=== PATIENT | female | born 1995 | race Caucasian/White ===

== ENCOUNTER 2017-10-22 17:37 | Emergency (ER) | END 2017-10-22 19:14 | disposition home or self-care (01) ==

== ENCOUNTER → 2018-06-04 | Outpatient (CLI) | payer BC ==
[~2018-06-04] MED LIST: BCP; Robaxin500 MG PO; Zofran Odt8 MG SL
== END ==
LOC: LAB SHORT 12:03 → LAB 12:03
PROVIDERS: Registered Nurse Community Health
DX: Z12.4 Encounter for screening for malignant neoplasm of cervix (principal)
CPT/HCPCS: G0123

== ENCOUNTER 2019-02-12 21:15 | Observation (INO) | payer BC ==
[~2019-02-12] VITALS: Ht 162.6 cm; Wt 104.3 kg
[2019-02-13] MEDS ORDERED: Percocet 7.5-31 EACH PO (00:27)
[2019-02-13] MEDS ORDERED: IBUP800 PO (00:27)
[2019-02-13 01:50] LABS: BASOPHILS ABSOLUTE AUTO 0.03 K/mm3 (0.00-0.23); BASOPHILS PERCENT AUTO 0 % (0-2); EOSINOPHILS ABSOLUTE AUTO 0.01 K/mm3 (0.00-0.68); EOSINOPHILS PERCENT AUTO 0 % (0-6); Hematocrit 36.2 % (33.0-51.0); IMMATURE GRAN ABSOLUTE AUTO 0.06 K/mm3 (0.00-0.10); IMMATURE GRAN PERCENT AUTO 1 % (0-1); LYMPHOCYTES ABSOLUTE AUTO 0.85 K/mm3 (0.84-5.20); LYMPHOCYTES PERCENT AUTO 7 % (21-46); MONOCYTES ABSOLUTE AUTO 0.79 K/mm3 (0.16-1.47); MONOCYTES PERCENT AUTO 6 % (4-13); Mean Corpuscular HGB 29.6 pg (26.0-34.0); Mean Corpuscular HGB Conc 33.1 g/dL (31.5-36.5); Mean Corpuscular Volume 89 fL (80-100); Mean Platelet Volume 9.7 fL (9.1-12.4); NEUTROPHILS ABSOLUTE AUTO 11.22 K/mm3 (1.96-9.15); NEUTROPHILS PERCENT AUTO 87 % (41-73); Platelet Count 282 K/mm3 (150-400); RDW Coefficient Variation 11.8 % (11.7-14.2); RDW Standard Deviation 38.2 fL (35.1-46.3); Red Blood Cell Count 4.06 M/mm3 (3.80-5.20); White Blood Cell Count 12.96 K/mm3 (4.00-11.30)
[2019-02-13 02:09] LABS: Alanine Aminotransfer (ALT/SGP 327 U/L (12-78); Albumin, Blood 3.6 g/dL (3.4-5.0); Albumin/Globulin Ratio 1.1 (0.8-1.8); Alk Phos 93 U/L (50-136); Anion Gap 6 mmol/L (6-16); Aspartate Aminotrans (AST/SGOT 316 U/L (12-37); Bilirubin, Total 0.3 mg/dL (0.1-1.0); Blood Urea Nitrogen 11 mg/dL (8-24); Bun/Creatinine Ratio 16.6 (12.0-20.0); CO2, Blood 25 mmol/L (21-32); Calcium, Blood 8.3 mg/dL (8.5-10.1); Chloride, Blood 107 mmol/L (98-108); Creatinine, Blood 0.66 mg/dL (0.40-1.00); Globulin, Blood 3.2 g/dL (2.2-4.0); Glomerular Filtration Rate >60 (60-); Glucose, Blood 122 mg/dL (70-99); Potassium, Blood 3.8 mmol/L (3.5-5.5); Sodium, Blood 138 mmol/L (136-145); Total Protein, Blood 6.8 g/dL (6.4-8.2)
[2019-02-13 02:20] LABS: Calcium, Ionized (POC) 1.17 mmol/L (1.10-1.46); Chloride (POC) 102 mmol/L (98-108); Creatinine (POC) 0.7 mg/dL (0.6-1.0); Glucose (ISTAT POC) 118 mg/dL (70-99); Hemoglobin (POC) 12.2 g/dL (12.0-16.0); Potassium (POC) 4.3 mmol/L (3.5-5.5); Sodium (POC) 138 mmol/L (135-148); Total CO2 (POC) 24 mmol/L (21-32)
--- NOTE | 2019-02-13 13:36 | NUR ---
DR LI HERE TO SEE PT.
[2019-02-13 14:07] LABS: BASOPHILS ABSOLUTE AUTO 0.03 K/mm3 (0.00-0.23); BASOPHILS PERCENT AUTO 0 % (0-2); EOSINOPHILS ABSOLUTE AUTO 0.03 K/mm3 (0.00-0.68); EOSINOPHILS PERCENT AUTO 0 % (0-6); Hematocrit 37.5 % (33.0-51.0); Hemoglobin 12.3 g/dL (11.5-16.0); IMMATURE GRAN ABSOLUTE AUTO 0.02 K/mm3 (0.00-0.10); IMMATURE GRAN PERCENT AUTO 0 % (0-1); LYMPHOCYTES ABSOLUTE AUTO 1.35 K/mm3 (0.84-5.20); LYMPHOCYTES PERCENT AUTO 13 % (21-46); MONOCYTES ABSOLUTE AUTO 1.24 K/mm3 (0.16-1.47); MONOCYTES PERCENT AUTO 12 % (4-13); Mean Corpuscular HGB 29.5 pg (26.0-34.0); Mean Corpuscular HGB Conc 32.8 g/dL (31.5-36.5); Mean Corpuscular Volume 90 fL (80-100); Mean Platelet Volume 9.9 fL (9.1-12.4); NEUTROPHILS ABSOLUTE AUTO 7.41 K/mm3 (1.96-9.15); NEUTROPHILS PERCENT AUTO 74 % (41-73); Platelet Count 286 K/mm3 (150-400); RDW Coefficient Variation 11.9 % (11.7-14.2); RDW Standard Deviation 38.8 fL (35.1-46.3); Red Blood Cell Count 4.17 M/mm3 (3.80-5.20); White Blood Cell Count 10.08 K/mm3 (4.00-11.30)
--- NOTE | 2019-02-13 16:36 | NUR ---
SHIFT SUMMARY PT NEW ADMIT TODAY. PT FAMILY PRESENT. PT BEEN ASSISTED WITH ADL'S PRN. PT HAS EATEN AND DRINKING WELL. PT DID HAVE PAIN MED AND WAS ABLE TO HAVE A NAP.
--- NOTE | 2019-02-13 16:37 | NUR ---
OTHER MARIA ALEJANDRA Saul GIVEN REPORT AND IS ASSUMING CARE OF PT AT THIS TIME.
--- NOTE | 2019-02-13 18:08 | NUR ---
2 TAB PO OXY GIVEN WITH ICE CREAM PT STATED IT HURTS TO REACH FOR HER CUP AND AND WHEN SHE MOVES PAIN IS 10/10 LAYING IN BED 5/10
[2019-02-14] MEDS ORDERED: ONDA4ODT PO (10:58)
[2019-02-14] MEDS ORDERED: OXYC5 PO (11:00)
--- NOTE | 2019-02-14 12:09 | NUR ---
DISCHARGE PT DISCHARGE TO HOME VIA WHEELCHAIR. DISCHARGE INSTRUCTIONS GONE OVER WITH PATIENT. PERSCRIPTIONS SENT WITH PATIENT.
--- NOTE | 2019-02-14 12:21 | NUR ---
NAUSEA PT BECAME NAUSEATED AND VOMITED PRIOR TO DISCHARGE. PT REPORTS PAIN MEDICATION MAKES HER NAUSEATED. SHE WAS ENCOURAGED TO EAT MILD FOODS AND STAY HYDRATED. PT REPORTS PASSING FLATUS, BOWEL SOUNDS PRESENT.
--- NOTE | 2019-02-14 12:34 | NUR ---
DISCHARGE SIGNATURE PAGE SENT HOME WITH PATIENT IN DISCHARGE PACKET. INFORMATION GONE OVER WITH PATIENT.
== END 2019-02-14 12:00 | disposition home or self-care (01) ==
LOC: ER 21:15 → ERHOLD 21:16 → ER 02-13 04:50 → ERHOLD 02-13 04:50 → SURS 02-13 04:50 → ERHOLD 02-13 12:22 → SURS 02-13 12:22 → ER 02-13 21:16 → ERHOLD 02-13 21:16 → SURS 02-13 21:16 → ER 02-14 12:00 → ERHOLD 02-14 12:00
PROVIDERS: Emergency Medicine; Surgery; ADMIT Surgery
DX: S36.115A Moderate laceration of liver, initial encounter (principal); S22.43XA Multiple fractures of ribs, bilateral, initial encounter for closed fracture; V86.59XA Driver of other special all-terrain or other off-road motor vehicle injured in nontraffic accident, initial encounter; R40.2413 Glasgow coma scale score 13-15, at hospital admission
CPT/HCPCS: 36415; 70450; 71046; 71260; 72040; 72125; 74177; 76705; 80047; 80053; 83690; 85014; 85025; 86850; 86900; 86901; 96374-59; 96375; 96375-59; 99285-25; J0780; J1170; J2405; Q9967

== ENCOUNTER → 2019-11-26 | Outpatient (CLI) | payer BC ==
[~2019-11-26] MED LIST changes: +IBUP800 PO; +ONDA4ODT PO; +OXYC5 PO; +Percocet 7.5-31 EACH PO
== END ==
LOC: LAB UCHC 15:27 → LAB SHORT 15:27
DX: N91.2 Amenorrhea, unspecified (principal)
CPT/HCPCS: 36415; 84702

== ENCOUNTER → 2020-03-17 | Outpatient (CLI) | payer BC ==
[2020-03-19 11:09] LABS: CHLAMYDIA TRACHOMATIS, NAA Negative (Negative); NEISSERIA GONORRHOEAE, NAA Negative (Negative)
== END ==
LOC: LAB SHORT 12:09 → LAB UCHC 12:09
PROVIDERS: Registered Nurse Community Health
DX: Z34.01 Encounter for supervision of normal first pregnancy, first trimester (principal)
CPT/HCPCS: 87491; 87591

== ENCOUNTER → 2020-07-05 | Outpatient (CLI) | payer BC ==
[~2020-07-05] MED LIST changes: +DOCU100 PO; +PRENATAL TABLE1 EAC2 PO; +Percocet 5-3251 EACH PO
[2020-07-05 12:43] LABS: Hematocrit 36.7 % (33.0-51.0); Hemoglobin 12.1 g/dL (11.5-16.0)
== END ==
LOC: PLD 11:39 → LAB SHORT 11:39
PROVIDERS: Registered Nurse Community Health
DX: Z34.90 Encounter for supervision of normal pregnancy, unspecified, unspecified trimester (principal)
CPT/HCPCS: 82950; 85014; 85018

== ENCOUNTER 2020-09-28 20:33 | Inpatient (IN) | payer BC ==
[~2020-09-28] VITALS: Ht 162.6 cm; Wt 122.7 kg
[~2020-09-28 20:33] MED LIST changes: -DOCU100 PO; -PRENATAL TABLE1 EAC2 PO; -Percocet 5-3251 EACH PO
[2020-09-28 21:43] LABS: BASOPHILS ABSOLUTE AUTO 0.03 K/mm3 (0.00-0.23); BASOPHILS PERCENT AUTO 0 % (0-2); EOSINOPHILS ABSOLUTE AUTO 0.11 K/mm3 (0.00-0.68); EOSINOPHILS PERCENT AUTO 1 % (0-6); Hematocrit 34.8 % (33.0-51.0); IMMATURE GRAN ABSOLUTE AUTO 0.03 K/mm3 (0.00-0.10); IMMATURE GRAN PERCENT AUTO 0 % (0-1); LYMPHOCYTES ABSOLUTE AUTO 2.43 K/mm3 (0.84-5.20); LYMPHOCYTES PERCENT AUTO 22 % (21-46); MONOCYTES ABSOLUTE AUTO 0.95 K/mm3 (0.16-1.47); MONOCYTES PERCENT AUTO 9 % (4-13); Mean Corpuscular HGB 28.3 pg (26.0-34.0); Mean Corpuscular HGB Conc 34.5 g/dL (31.5-36.5); Mean Corpuscular Volume 82 fL (80-100); Mean Platelet Volume 10.5 fL (9.1-12.4); NEUTROPHILS ABSOLUTE AUTO 7.41 K/mm3 (1.96-9.15); NEUTROPHILS PERCENT AUTO 68 % (41-73); Platelet Count 262 K/mm3 (150-400); RDW Coefficient Variation 12.4 % (11.7-14.2); RDW Standard Deviation 36.5 fL (35.1-46.3); Red Blood Cell Count 4.24 M/mm3 (3.80-5.20); White Blood Cell Count 10.96 K/mm3 (4.00-11.30)
[2020-09-29 16:56] LABS: PCO2 Cord - Arterial 63.8 mmHg (40-50); pH Cord - Arterial 7.16 (7.28-7.35)
[2020-09-29 16:58] LABS: PCO2 Cord - Venous 51.7 mmHg (40-50); PO2 Cord - Venous 15.9 mmHg (28-32); pH Umbilical Cord - Venous 7.22 (7.26-7.35)
[2020-09-29 16:59] LABS: PO2 Cord - Arterial < 13 mmHg (16-20)
--- NOTE | 2020-09-29 18:16 | NUR ---
09/29/20 1816 Emily Espinoza 1638 DELIVERY OF VIABLE FEMALE , WEIGHT 3286, 7# 4 OZ, HEAD 14 INCHES, CHEST 14 INCHES, LENGTH 20 INCHES, APGARS 8/8, NB TAKEN TO [facility] FOR RESPIRATORY EVALUATION BY NUTRITION PROGRAM INSTRUCTOR, UMBILICAL CORD SEGMENT SENT WITH RT FOR CORD GASES, UMBILCAL CORD BLOOD COLLECTED FOR TYPE AND RH GIVEN TO RN
--- NOTE | 2020-09-29 19:00 | NUR ---
ASSUMED CARE OF PATIENT, REPORT RECEIVED FROM MARIA ALEJANDRA MARIN. PT IS STARTING TO GET MORE PAINFUL. WILL TRY PO AND GIVE PAIN MEDICATION. BABY IS A BREAST, WITH GOOD LATCH,
--- NOTE | 2020-09-29 21:00 | NUR ---
PT CONTINUES TO BE PAINFUL AFTER PERCOCET. BINDER APPLIED. WILL SEE IF THIS HELPS, OTHERWISE WILL CALL FOR BREAKTHROUGH PAIN MEDICATION.
--- NOTE | 2020-09-29 22:30 | NUR ---
REPORT TO MARIA ALEJANDRA RICKS
[2020-09-30 05:40] LABS: BASOPHILS ABSOLUTE AUTO 0.03 K/mm3 (0.00-0.23); BASOPHILS PERCENT AUTO 0 % (0-2); EOSINOPHILS ABSOLUTE AUTO 0.03 K/mm3 (0.00-0.68); EOSINOPHILS PERCENT AUTO 0 % (0-6); Hematocrit 28.3 % (33.0-51.0); Hemoglobin 9.7 g/dL (11.5-16.0); IMMATURE GRAN ABSOLUTE AUTO 0.04 K/mm3 (0.00-0.10); IMMATURE GRAN PERCENT AUTO 0 % (0-1); LYMPHOCYTES ABSOLUTE AUTO 1.85 K/mm3 (0.84-5.20); LYMPHOCYTES PERCENT AUTO 16 % (21-46); MONOCYTES ABSOLUTE AUTO 1.08 K/mm3 (0.16-1.47); MONOCYTES PERCENT AUTO 9 % (4-13); Mean Corpuscular HGB 28.2 pg (26.0-34.0); Mean Corpuscular HGB Conc 34.3 g/dL (31.5-36.5); Mean Corpuscular Volume 82 fL (80-100); Mean Platelet Volume 10.3 fL (9.1-12.4); NEUTROPHILS ABSOLUTE AUTO 8.94 K/mm3 (1.96-9.15); NEUTROPHILS PERCENT AUTO 75 % (41-73); Platelet Count 216 K/mm3 (150-400); RDW Coefficient Variation 12.5 % (11.7-14.2); RDW Standard Deviation 36.9 fL (35.1-46.3); Red Blood Cell Count 3.44 M/mm3 (3.80-5.20); White Blood Cell Count 11.97 K/mm3 (4.00-11.30)
[2020-10-01] MEDS ORDERED: DOCU100 PO (13:44)
[2020-10-01] MEDS ORDERED: IBUP800 PO (13:45)
[2020-10-01] MEDS ORDERED: Percocet 5-3251 EACH PO (13:45)
[2020-10-01] MEDS ORDERED: PRENATAL TABLE1 EAC2 PO (13:46)
--- NOTE | 2020-10-11 18:51 | NUR ---
LATE ENTRY OR CHECKLIST UPDATED PER EMR
== END 2020-10-01 14:37 | disposition home or self-care (01) | DRG 787 ==
LOC: OBS 20:33 → BC 20:35 → OBS 20:46 → BC 20:47
PROVIDERS: Family Medicine; ADMIT Registered Nurse Community Health
PROC: 10H07YZ Insertion of Other Device into Products of Conception, Via Natural or Artificial Opening (ICD-10-PCS; 2020-09-28)
PROC: 3E0234Z Introduction of Serum, Toxoid and Vaccine into Muscle, Percutaneous Approach (ICD-10-PCS; 2020-09-29)
PROC: 10D00Z1 Extraction of Products of Conception, Low, Open Approach (ICD-10-PCS; principal; 2020-09-29 17:00)
DX: O99.824 Streptococcus B carrier state complicating childbirth (principal); D62 Acute posthemorrhagic anemia; O76 Abnormality in fetal heart rate and rhythm complicating labor and delivery; Z88.5 Allergy status to narcotic agent; Z3A.39 39 weeks gestation of pregnancy; Z37.0 Single live birth; O26.893 Other specified pregnancy related conditions, third trimester; Z67.21 Type B blood, Rh negative; Z20.822 Contact with and (suspected) exposure to COVID-19; O99.02 Anemia complicating childbirth
CPT/HCPCS: 36415; 82803; 85025; 85460; 86850; 86900; 86901; 96372; A9270; J0290; J0690; J1885; J2210; J2370; J2405; J2590; J2765; J2791; J7120; U0004

== ENCOUNTER → 2022-05-16 | Outpatient (CLI) | payer OTHER ==
[~2022-05-16] MED LIST changes: +DOCU100 PO; +PRENATAL TABLE1 EAC2 PO; +Percocet 5-3251 EACH PO
[2022-05-18 03:10] LABS: CHLAMYDIA TRACHOMATIS, NAA Negative (Negative)
== END ==
LOC: LAB 15:50 → LAB SHORT 15:50
PROVIDERS: Registered Nurse Community Health
DX: Z34.00 Encounter for supervision of normal first pregnancy, unspecified trimester (principal); Z3A.00 Weeks of gestation of pregnancy not specified
CPT/HCPCS: 83036; 87491; 87591

== ENCOUNTER → 2022-07-19 | Outpatient (CLI) | payer OTHER ==
[2022-07-19 12:13] LABS: Hematocrit 36.1 % (33.0-51.0); Hemoglobin 12.1 g/dL (11.5-16.0)
== END | disposition home or self-care (01) ==
LOC: LAB SHORT 11:10
PROVIDERS: Registered Nurse Community Health
DX: Z34.03 Encounter for supervision of normal first pregnancy, third trimester (principal)
CPT/HCPCS: 82950; 85014; 85018

== ENCOUNTER → 2022-09-18 | Outpatient (CLI) | payer BC, OTHER | END | disposition home or self-care (01) | LOC: LAB SHORT 17:20 → LAB 17:20 | DX: Z34.03 Encounter for supervision of normal first pregnancy, third trimester (principal) | CPT/HCPCS: 87081; 87150 ==

== ENCOUNTER 2022-10-05 07:14 | Inpatient (IN) | payer BC, OTHER ==
[2022-10-05] VITALS (19 sets, daily range): BP systolic 94–127; BP diastolic 39–72
[~2022-10-05] VITALS: Ht 162.6 cm; Wt 122.0 kg
[2022-10-05 09:02] LABS: BASOPHILS ABSOLUTE AUTO 0.02 K/mm3 (0.00-0.23); BASOPHILS PERCENT AUTO 0 % (0-2); EOSINOPHILS ABSOLUTE AUTO 0.08 K/mm3 (0.00-0.68); EOSINOPHILS PERCENT AUTO 1 % (0-6); Hematocrit 36.7 % (33.0-51.0); Hemoglobin 12.3 g/dL (11.5-16.0); IMMATURE GRAN ABSOLUTE AUTO 0.03 K/mm3 (0.00-0.10); IMMATURE GRAN PERCENT AUTO 0 % (0-1); LYMPHOCYTES PERCENT AUTO 21 % (21-46); MONOCYTES PERCENT AUTO 9 % (4-13); Mean Corpuscular HGB Conc 33.5 g/dL (31.5-36.5); Mean Corpuscular Volume 81 fL (80-100); Mean Platelet Volume 10.6 fL (9.1-12.4); NEUTROPHILS PERCENT AUTO 68 % (41-73); Platelet Count 246 K/mm3 (150-400); RDW Coefficient Variation 12.6 % (11.7-14.2); RDW Standard Deviation 36.8 fL (35.1-46.3); Red Blood Cell Count 4.55 M/mm3 (3.80-5.20); White Blood Cell Count 7.93 K/mm3 (4.00-11.30)
--- NOTE | 2022-10-05 11:38 | NUR ---
10/05/22 1138 [facility] BABY BOY WAS BORN AT 1106. WAS 9.
[2022-10-06 04:14] VITALS: BP 120/65
[2022-10-06 06:47] LABS: BASOPHILS ABSOLUTE AUTO 0.03 K/mm3 (0.00-0.23); BASOPHILS PERCENT AUTO 0 % (0-2); EOSINOPHILS ABSOLUTE AUTO 0.04 K/mm3 (0.00-0.68); EOSINOPHILS PERCENT AUTO 0 % (0-6); Hematocrit 31.5 % (33.0-51.0); Hemoglobin 10.6 g/dL (11.5-16.0); IMMATURE GRAN ABSOLUTE AUTO 0.03 K/mm3 (0.00-0.10); IMMATURE GRAN PERCENT AUTO 0 % (0-1); LYMPHOCYTES ABSOLUTE AUTO 1.64 K/mm3 (0.84-5.20); LYMPHOCYTES PERCENT AUTO 18 % (21-46); MONOCYTES ABSOLUTE AUTO 0.77 K/mm3 (0.16-1.47); MONOCYTES PERCENT AUTO 9 % (4-13); Mean Corpuscular HGB 27.5 pg (26.0-34.0); Mean Corpuscular HGB Conc 33.7 g/dL (31.5-36.5); Mean Corpuscular Volume 82 fL (80-100); Mean Platelet Volume 10.1 fL (9.1-12.4); NEUTROPHILS ABSOLUTE AUTO 6.38 K/mm3 (1.96-9.15); NEUTROPHILS PERCENT AUTO 72 % (41-73); Platelet Count 218 K/mm3 (150-400); RDW Coefficient Variation 12.9 % (11.7-14.2); RDW Standard Deviation 38.2 fL (35.1-46.3); Red Blood Cell Count 3.85 M/mm3 (3.80-5.20); White Blood Cell Count 8.89 K/mm3 (4.00-11.30)
[2022-10-06 07:39] VITALS: BP 112/61
[2022-10-06 11:23] VITALS: BP 112/66
[2022-10-06 15:53] VITALS: BP 116/57
[2022-10-06 20:09] VITALS: BP 107/62
[2022-10-06 23:06] VITALS: BP 125/71
[2022-10-07 05:37] VITALS: BP 120/78
[2022-10-07 07:17] VITALS: BP 118/70
[2022-10-07 11:18] VITALS: BP 136/81
--- NOTE | 2022-10-07 12:18 | NUR ---
BANDS MATCHED. PT DISCHARGED TO HOME
== END 2022-10-07 12:40 | disposition home or self-care (01) | DRG 788 ==
LOC: BC 07:25
PROVIDERS: ADMIT Family Medicine
PROC: 3E0234Z Introduction of Serum, Toxoid and Vaccine into Muscle, Percutaneous Approach (ICD-10-PCS; 2022-10-05)
PROC: 10D00Z1 Extraction of Products of Conception, Low, Open Approach (ICD-10-PCS; principal; 2022-10-05 09:15)
DX: O34.211 Maternal care for low transverse scar from previous cesarean delivery (principal); O99.824 Streptococcus B carrier state complicating childbirth; O99.214 Obesity complicating childbirth; O24.419 Gestational diabetes mellitus in pregnancy, unspecified control; O36.5930 Maternal care for other known or suspected poor fetal growth, third trimester, not applicable or unspecified; O34.593 Maternal care for other abnormalities of gravid uterus, third trimester; N80.01 Superficial endometriosis of the uterus; Z37.0 Single live birth; Z3A.39 39 weeks gestation of pregnancy; Z88.5 Allergy status to narcotic agent; O26.893 Other specified pregnancy related conditions, third trimester; Z67.21 Type B blood, Rh negative; Z79.899 Other long term (current) drug therapy
CPT/HCPCS: 36415; 82947; 85025; 85460; 86850; 86900; 86901; 96372; A9270; J0690; J0694; J1885; J2370; J2405; J2590; J2704; J2765; J2791; J3010; J7120; Q0177

== ENCOUNTER → 2022-12-10 | Outpatient (CLI) | payer BC, OTHER | LOC: LAB 15:30 → LAB SHORT 15:30 | PROVIDERS: Registered Nurse Community Health | DX: Z12.4 Encounter for screening for malignant neoplasm of cervix (principal) | CPT/HCPCS: G0145 ==